=== PATIENT | female | born 1940 | race Caucasian/White ===

== ENCOUNTER 2017-01-15 10:17 | Inpatient (IN) | payer MEDICARE, BC ==
[~2017-01-15] VITALS: Ht 160 cm; Wt 101.6 kg
--- NOTE | ~2017-01-15 | OR ---
ADMIT: 01/15/2017 RM/LOC: 307 [facility] MR#: [id number] [address] [address] PENGEVELIN LUIS Cummings [address] [place] [address] Operative/Delivery Room Report SEX: F AGE: 76 : 1940 SURGERY DATE: 01/15/2017 SURGEON: Froilan Muñoz MD PREOPERATIVE DIAGNOSIS: Upper gastrointestinal blood loss. POSTOPERATIVE DIAGNOSES: 1. Moderate antral gastritis. 2. Small punctate ulceration in the duodenum with some old blood at the base of this ulcer. Likely source of her upper gastrointestinal blood loss. 3. Small sliding type hiatal hernia. PROCEDURE PERFORMED: 1. EGD with biopsies of the duodenum and antrum. 2. Injection of ulceration in the duodenum with epinephrine mixture. ANESTHESIA: Sedation. ESTIMATED BLOOD LOSS: Less than 10 mL. DESCRIPTION OF PROCEDURE: After appropriate informed consent was obtained, the patient was brought to the operating room. IV sedation was provided. A well-lubricated endoscope was introduced and passed down the esophagus. The esophageal mucosa appeared normal. GE junction appeared sharp and distinct. No evidence of any reflux changes. She did have a very small hiatal hernial about 1 cm or so in length. Sliding type hiatal hernia. The gastric mucosa and fundus appeared normal. In the gastric antrum, she did have some moderate diffuse gastritis, very superficial ulceration, nothing deep, no active bleeding there. The pylorus was intubated. Duodenal bulb appeared normal but in the second portion of the duodenum, she did have a small ulceration with a little bit of old blood directly over that. I was able to suction and wash away that old blood. I could see that the ulcer was really small, but fairly deep. So, I suspect this was the cause of her bleeding. I did elect to inject this area, so I used epinephrine mixture, injected circumferentially around the ulcer as well as directly in the center of it. It still did not have any active bleeding in it. Several biopsies were taken in the duodenum ADMIT: 01/15/2017 RM/LOC: 307 [facility] MR#: [id number] [address] [address] CHRISTINE MUSTAFADANO Cummings [address] [place] [address] Operative/Delivery Room Report SEX: F AGE: 76 : 1940 and biopsies were also taken in the antrum. The scope was retroflexed in the stomach, again revealing no proximal gastritis, no ulcerations proximally, just the small hiatal hernia. A couple of the gastric biopsy sites continued to ooze a little bit, so I did inject the rest of my epinephrine mixture in both those two biopsy sites just to control that oozing. The stomach was then deflated and the scope withdrawn without apparent complications. The patient tolerated the procedure well and was taken to the recovery room in stable condition. Froilan Muñoz MD/ regina JOB #: [id number] CC: David Marsh, Attending Physician Epifanio Hope, Family Physician FLAQUITA Bahena MD
--- NOTE | ~2017-01-15 | WND ---
ADMIT: 01/15/2017 RM/LOC: 307 [facility] MR#: [id number] [address] [address] CECILIA MUSTAFA [address] [place] [address] Wound Care Clinic SEX: F AGE: 76 : 1940 DATE OF VISIT: 01/16/2017 TIME OF VISIT: 25 minutes. HISTORY OF PRESENT ILLNESS: Cecilia is a 76-year-old female, who was admitted from [facility] in [place] for blood in stools. She presented there on January 13, 2017 with bright red blood and maroon blood that occurred very rapidly. She has had some associated abdominal and lower back pain. She is being seen today for an ulcer on the lateral surface of her right foot. She states that they have been treating this at [facility] for the past 4 months. She reports that she had an MRI done of the foot that ruled out any osteomyelitis. She described herself as being neuropathic and states that she tests 0/2 places with a monofilament test. The current treatment right now is a Mepilex Ag dressing, changed every 4th or 5th day. She reports that when she is asleep in bed, she lays on her right side. She says there has been nothing done as far as offloading while she is in bed sleeping at night. PAST MEDICAL HISTORY: 1. Obesity. 2. Obstructive sleep apnea with BiPAP each evening. 3. Coronary artery disease, history of CABG and PCI. 4. Hypertension. 5. Pulmonary hypertension. 6. Questionable history of Nwbrl-Jxawsttaf-Ibjoj. 7. History of deep vein thrombosis and PE. 8. Atrial fibrillation with chronic anticoagulation. 9. Chronic kidney disease. 10.History of nephrolithiasis, history of lithotripsy. 11.History of pelvic organ prolapse. 12.History of shingles. 13.History of cataract extraction. 14.Status post appendectomy. 15.Status post cholecystectomy. 16.Status post abdominal hernia repair. 17.Rheumatoid arthritis. 18.Chronic back pain, status post 3 back surgeries. 19.History of left reverse total shoulder. 20.Right foot chronic wound. PAST SURGICAL HISTORY: 1. History of tubal ligation and abdominal hysterectomy. 2. She has a history of left rotator cuff repair and bilateral total knee arthroplasty. 3. She has a history of lumbar degenerative disease with back surgery. 4. History of colonoscopy approximately 8 years ago and she was told this was normal. FAMILY HISTORY: Mother with [place], stroke, and hypertension. Father with COPD. ADMIT: 01/15/2017 RM/LOC: 307 [facility] MR#: [id number] [address] [address] CECILIA MUSTAFA [address] [place] [address] Wound Care Clinic SEX: F AGE: 76 : 1940 SOCIAL HISTORY: She is retired. She denies tobacco or alcohol use. She denies illicit drug use. She resides in [place], [place]. ALLERGIES: To procainamide. HOME MEDICATIONS: 1. Coumadin. 2. Tikosyn. 3. Multivitamin. 4. Fish oil. 5. Bystolic. 6. Potassium. 7. Calcium. 8. Vitamin D. 9. Aspirin. 10.Magnesium. 11.Arava. 12.Hydrocodone. 13.Lipitor. 14.Torsemide. 15.B12. 16.Morphine. REVIEW OF SYSTEMS: She denies any complaints of pain to the right foot. She denies fever or chills. She denies chest pain. She does report some shortness of breath. She denies some symptoms of claudication. She states that she does not have any pain in her legs when she sleeps at night but does report some cramping in night and that she rub some type of ointment on and that resolves it. PHYSICAL EXAMINATION: VITAL SIGNS: Temperature 97.3 degrees Fahrenheit, pulse 70, respirations 16, blood pressure 150/53, pulse ox 100% on oxygen. GENERAL ASSESSMENT: Reveals an alert and oriented x3, 76-year-old female, in no acute distress. EXTREMITIES: Assessment of her right lateral foot along the 5th metatarsal reveals a full-thickness wound that measures 1.8 cm in length x 1.5 cm in width. Wound bed is 50%, granulation tissue 50%, densely adherent yellow slough. Periwound skin is callus extending out to make the wound 2.5 cm in length x 2.5 cm in width. The periwound skin is also macerated. ADMIT: 01/15/2017 RM/LOC: 307 [facility] MR#: [id number] [address] [place] [phone] CECILIA MUSTAFA [address] [place] [address] Wound Care Clinic SEX: F AGE: 76 : 1940 Circumferential measurement of the foot is 22 cm, ankle 22 cm, and calf 35 cm. Her right foot appears to have some Charcot deformity. ASSESSMENT: Stage III pressure ulcer to right lateral foot. PLAN: I washed her foot with warm soapy water and rinsed and patted dry. I also applied saline over the wound bed. I am going to use Aquacel to the wound bed and a gauze cover dressing taped to secure change daily. I would like her to wear EdemaWear on during the day and off at night. In addition, we will see what we can do to help offload that foot while she is in bed. The patient is amenable to plan of care. If she continues, we will continue to follow her while in the hospital. Roxana Rao APRN/ regina JOB #: [id number] CC: David Marsh, Attending Physician Epifanio Hope, Family Physician
[~2017-01-15 10:17] MED LIST: ASA CHILDREN'S81 MG PO; BYSTOLIC10 MG PO; CALCIUM + VITA1 EAC1 PO; COLACE100 MG PO; COUMADIN5 MG PO; FLEXERIL DPS5 MG PO; FOLIC ACID0.4 MG PO; MULTIVITAMINS1 EAC1 PO; PERCOCET 5-3251 EACH PO; POTASSIUM CL ER PO; RESTORIL7.5 MG PO; SPIRONOLACTONE25 MG PO; SURFAK240 MG PO; TIKOSYN250 MCG PO; TYLENOL325 MG PO
--- NOTE | 2017-01-16 17:48 | HP ---
ADMIT: 01/15/2017 RM/LOC: 307 [facility] MR#: [id number] [address] [address] PENGEVELIN LUIS Cummings [address] [place] [address] History and Physical SEX: F AGE: 76 : 1940 DATE OF SERVICE: CHIEF COMPLAINT: Blood in stools. HISTORY OF PRESENT ILLNESS: The patient is a very pleasant 76-year-old female. She has a past medical history of atrial fibrillation on chronic anticoagulation, hypothyroidism as well as sleep apnea, and obesity presents to [facility] today as a transfer patient from [facility]. She presented there on 01/13 in the [place] [employer] with complaints of bright red blood and more maroon stools than anything just very abruptly. It has been associated with some abdominal, lower abdominal cramping and gas across her back. After she has a stool, that goes away. She also had an episode of hematemesis initially right away at time of her inpatient admission early that Thursday with some blood mixed in with what she had eaten the night before. Since that time, she has had about 4 large maroon bloody stools with no stool mixed in. The patient notes she has had her last large stool approximately between 9 and 10 a.m. this morning, once again, large and maroon. On presentation to [facility], her hemoglobin was 5.3, she got 4 units packed red cells that came up to 8.7. She is also anticoagulated and was given vitamin K at that point. Things had stabilized yesterday and then this morning, her hemoglobin was 7.1. The patient denies any further nausea or vomiting, has not had any current abdominal discomfort. She denies chest pain, shortness of breath, or palpitations. States overall her other medical conditions are stable. As mentioned, no recent medication changes are noted. She does note a little bit of chronic dyspnea on exertion, but nothing else has changed. PAST MEDICAL HISTORY: 1. Obesity. 2. Obstructive sleep apnea with a BiPAP each evening. 3. Coronary artery disease, history of CABG and PCI. 4. Hypertension. 5. Pulmonary hypertension. 6. Questionable history of Jzwbf-Wycvgbeux-Ifpux. 7. History of DVT and PE. 8. Atrial fibrillation with chronic anticoagulation. 9. Chronic kidney disease. 10.History of nephrolithiasis, history of lithotripsy. 11.History of pelvic organ prolapse. 12.History of shingles. 13.History of cataract extraction. 14.Status post appendectomy. 15.Status post cholecystectomy. 16.Status post abdominal hernia repair. 17.Rheumatoid arthritis. 18.Chronic back pain status post 3 back surgeries. 19.History of left reverse total shoulder. 20.Right foot chronic wound. ADMIT: 01/15/2017 RM/LOC: 307 [facility] MR#: [id number] [address] [address] LUIS MUSTAFA [address] [place] [address] History and Physical SEX: F AGE: 76 : 1940 PAST SURGICAL HISTORY: 1. History of tubal ligation and abdominal hysterectomy. 2. She has a history of left rotator cuff repair and bilateral total knee arthroplasty. 3. She also has history of lumbar degenerative disease with back surgeries. 4. She has history of colonoscopy approximately 8 years ago that she was told was normal. FAMILY HISTORY: Mother with [place], stroke, and hypertension. Father with COPD. SOCIAL HISTORY: She is retired, nonsmoker. Never a drinker. Lives in [place], [place]. ALLERGIES: PROCAINAMIDE. HOME MEDICATIONS: 1. Coumadin. 2. Tikosyn. 3. Multivitamin. 4. Fish oil. 5. Bystolic. 6. Potassium. 7. Calcium. 8. Vitamin D. 9. Aspirin. 10.Magnesium. 11.Arava. 12.Hydrocodone. 13.Lipitor. 14.Torsemide. 15.B12. 16.Morphine. REVIEW OF SYSTEMS: As noted above. All systems are reviewed and are negative. PHYSICAL EXAMINATION: VITAL SIGNS: 97.8, 82, 13, 143/58, and 100%. LABORATORY DATA: INR was 2.8 this morning. Mag was 1.9. Hemoglobin 7.1, that was down from 8.7 yesterday. White count 9.1 and 129 platelets. Sodium 139, potassium 4.2, BUN is 35 with creatinine 1.46. On her last hospitalization it looks like her creatinine been closer to 0.84. ASSESSMENT AND PLAN: 1. Gastrointestinal bleeding. Questionable source with history of melena but also history of hematemesis. 2. Acute blood loss anemia. 3. Acute kidney injury on chronic kidney disease. ADMIT: 01/15/2017 RM/LOC: [address] [place] [address] MR#: [id number] [address] [place] [id number] LUIS MUSTAFA [address] [place] [address] History and Physical SEX: F AGE: 76 : 1940 4. Atrial fibrillation. 5. Chronic anticoagulation. 6. Coronary artery disease, status post coronary artery bypass grafting. 7. Obstructive sleep apnea. 8. Right foot chronic wound. At this time, the patient is hemodynamically stable. She is finishing up her packed red cell transfusion. We are then going to give her some FFP and start her on a Protonix drip. We will have an H and H after blood is done. She had also undergone CT scanning of the abdomen and pelvis up in [place], we will try to get those images, push this way for radiologist to look at as well. I have talked with Dr. Froilan Muñoz who plans hopefully get her in for an EGD today and we will follow her closely here in the ICU. David Marsh MD/ regina JOB #: [id number] CC: David Marsh, Attending Physician Epifanio Hope, Family Physician
[2017-01-20] MEDS ORDERED: TIKOSYN125 MCG PO (17:38)
[2017-01-20] MEDS ORDERED: LIPITOR40 MG PO (17:39)
[2017-01-20] MEDS ORDERED: ARAVA DPS20 MG PO (17:39)
[2017-01-20] MEDS ORDERED: KLOR-CON M2020 ME1 PO (17:39)
[2017-01-20] MEDS ORDERED: BYSTOLIC5 MG PO (17:39)
[2017-01-20] MEDS ORDERED: DEMADEX20 MG PO (17:40)
[2017-01-20] MEDS ORDERED: ALDACTONE DPS25 MG PO (17:40)
[2017-01-20] MEDS ORDERED: MS CONTIN15 MG PO (17:41)
[2017-01-20] MEDS ORDERED: CALTRATE-600 W600 MG PO (17:41)
[2017-01-20] MEDS ORDERED: KRILL OIL500 MG PO (17:41)
[2017-01-20] MEDS ORDERED: CULTURELLE1 CAP PO (17:42)
[2017-01-20] MEDS ORDERED: MAG-OX400 MG PO (17:42)
[2017-01-20] MEDS ORDERED: VITAMIN B-121000 MCG PO (17:43)
[2017-01-20] MEDS ORDERED: NITROSTAT0.4 MG SL (17:43)
[2017-01-20] MEDS ORDERED: THERA1 EACH PO (17:43)
[2017-01-20] MEDS ORDERED: PROTONIX40 MG PO (17:43)
--- NOTE | 2017-01-21 10:45 | CO ---
ADMIT: 01/15/2017 RM/LOC: 307 [facility] MR#: [id number] [address] [address] LUIS MUSTAFA [address] [place] [address] Consultation SEX: F AGE: 76 : 1940 DATE OF CONSULTATION: 01/15/2017 ATTENDING PHYSICIAN: David Marsh CONSULTING PHYSICIAN: Froilan Muñoz MD ADDENDUM: An addendum to consultation by MARGARITO Cisneros. CHIEF COMPLAINT: Upper GI bleed. HISTORY OF PRESENT ILLNESS: This is a pleasant 76-year-old female patient of Epifanio Hope PA-C, who was sent down and accepted in transfer by Dr. David Marsh. She has had a couple of days' history of some hematemesis, melena, maroon-colored stools, and anemia. This is concerning obviously for an ongoing upper GI blood loss. PAST MEDICAL HISTORY: Well outlined in the chart. She is in atrial fibrillation, so she is on Coumadin and she is supratherapeutic on her Coumadin right now but she is receiving some FFP, platelets, and blood as I speak. PHYSICAL EXAMINATION: On exam, her abdomen is soft. It is nontender. ASSESSMENT: Probable upper gastrointestinal blood loss with hematemesis, melena, maroon-colored stools, and anemia. PLAN: I have recommended proceeding with EGD. I have gone through risks and benefits of this procedure. She understands and agrees to proceed. Froilan Muñoz MD/ regina JOB #: [id number] CC: David Marsh, Attending Physician Epifanio Hope, Family Physician
--- NOTE | 2017-01-21 10:45 | CO ---
ADMIT: 01/15/2017 RM/LOC: 307 [facility] MR#: [id number] [address] [address] [place] [address] Consultation SEX: F AGE: 76 : 1940 DATE OF CONSULTATION: 01/15/2017 ATTENDING PHYSICIAN: David Marsh CONSULTING PHYSICIAN: Froilan Muñoz MD REASON FOR CONSULTATION: Anemia, upper gastrointestinal bleed. HISTORY OF PRESENT ILLNESS: Cecilia is a very pleasant 76-year-old female, who is anticoagulated on Coumadin, who noticed some maroon-appearing stools on Thursday night. As a result of this, she became very weak and short of breath and was seen in the emergency room up in [place]. At that time, she was admitted for observation and was found to be anemic. I believe her hemoglobin dropped to somewhere in the 5 range. During her admission, she had one time emesis where she did not see it, but does described as "being bloody." She was given 4 units of blood and vitamin K unsure of the dosage. The patient has noticed her nausea has resolved, but continues to have maroon stools despite blood replacement. She has now been transferred to our facility for surgical consultation. Currently, the patient's weakness and shortness of breath has improved. She denies taking any other blood thinning medications. Denies diarrhea, constipation, or bright red blood per rectum. She does have some abdominal pain that is mainly lower in her abdomen. She believes her last EGD and colonoscopy was roughly 7 to 8 years [address] performed [address] Moreno up in [place]. At that time, she cannot remember if there were any pathological findings. PAST MEDICAL HISTORY: Significant for: 1. Acute kidney injury. 2. Atrial fibrillation. 3. Coronary artery disease. 4. Osteoarthritis. PAST SURGICAL HISTORY: 1. Previous EGD and colonoscopy about 7 to 8 years ago, please see please see HPI. 2. Back surgery for spinal stenosis. 3. Neck surgery. 4. Left shoulder surgery. 5. Hysterectomy. 6. Gallbladder and appendectomy. 7. Total knee arthroplasty. 8. Cataract surgery. 9. Right foot surgery. 10.Ventral hernia surgery. ALLERGIES: PROCAINAMIDE. MEDICATIONS: Coumadin. Last dose was Thursday night at 5 mg. ADMIT: 01/15/2017 RM/LOC: 307 [facility] MR#: [id number] [address] [address] [place] [address] Consultation SEX: F AGE: 76 : 1940 SOCIAL HISTORY: The patient denies any tobacco, alcohol, or illicit drug use. FAMILY HISTORY: The patient reports that she has a brother with peptic ulcer disease, but denies any other blood bleeding disorders or GI disorders. REVIEW OF SYSTEMS: CONSTITUTIONAL: The patient states night sweats, but this is consistent for her. She denies any fevers or chills. The rest of a comprehensive 10-point review of systems was performed and all other systems are negative. PHYSICAL EXAMINATION: GENERAL: The patient is in no acute distress. She is alert and oriented. HEENT: Head is normocephalic and atraumatic. EOMS are intact. Conjunctivae free of icterus, erythema, or pallor. Pinnae, free of deformities. Nose, midline. No tracheal deviation. NECK: Supple. SKIN: Negative for jaundice, clubbing, edema, pallor, or cyanosis. LUNGS: Normal respiratory effort. HEART: Distal pulses intact. Regular rate and rhythm. ABDOMEN: Soft, nondistended. Tenderness in right lower and left lower quadrants. NEURO: Grossly intact. LABORATORY DATA: Most recent hemoglobin is obtained from an outside lab, 7.1. ASSESSMENT: Anemia, gastrointestinal blood loss. PLAN: The plan is to have the patient undergo EGD performed by Dr. Muñoz this afternoon. I discussed the risks, alternatives, benefits, and complications of the procedure with the patient to which she has agreement of this plan, had all her questions answered, and would like to proceed. We are going to check some labs on her and Dr. Marsh is going to give her 4 units of FFP prior to endoscopy which we endorse. We will see how she does this afternoon and follow her closely while in the hospital. Thanks for the consultation of this patient. MARGARITO Cisneros / Froilan Muñoz MD / regina JOB #: [id number] CC: David Marsh, Attending Physician Epifanio Hope, Family Physician
--- NOTE | 2017-01-23 16:22 | DS ---
ADMIT: 01/15/2017 RM/LOC: 413 [facility] MR#: [id number] [address] [address] RAMSEY LUSI Zoila [address] [place] [address] Discharge Summary SEX: F AGE: 76 : 1940 ADMISSION DATE: 01/15/2017 DISCHARGE DATE: 01/19/2017 DISCHARGE DIAGNOSIS: 1. Acute upper GI (gastrointestinal) bleed/duodenal ulcer. Pathology pending. 2. Acute blood loss anemia, status post packed red blood cell transfusion. 3. Atrial fibrillation with prior anticoagulation. 4. A 3.2 x 2.8 cm right lower quadrant opacity on CT (computed tomography) scan in need of follow-up imaging. 5. Lower abdominal cramping, improved. 6. Rheumatoid arthritis, on Arava. 7. History of coronary artery disease. 8. Chronic hypoxic respiratory failure. 9. Obesity. 10.Hypertension. 11.Hyperlipidemia. CONSULTATIONS: General Surgery. PROCEDURES: EGD with biopsy. REASON FOR ADMISSION: A very pleasant 76-year-old female [place] [facility] [place] [facility] with anemia and melena/maroon stools. For complete details, please see my H and P dictated on the day of admission. HOSPITAL COURSE: At the time of admission, patient was placed in an ICU bed. Transfusion took place as well as FFP was given to correct her coagulopathy. She was hemodynamically stable. She was started on a Protonix drip and made n.p.o. General Surgery saw the patient and took her for an EGD that did show a duodenal ulcer. With her coagulopathy being resolved, her stools slowed down dramatically and only had a couple of small stools over the next 24 hours. Did have a drop in her hemoglobin to 6.9, and she was given another transfusion of packed red cells. Obviously her Coumadin was held. Biopsies from the duodenum were pending at the time of this dictation. The patient ambulated and ate. We got her back on her home medications. Of course, we held her aspirin, anti-platelet agents and her Coumadin. CT scanning that she had done in [place] did show this 3.2 x 2.8 cm right lower quadrant opacity on CT scan. Surgery reviewed this and thought it was probably some scarring. She did have some lower abdominal cramping that always got better after bowel ADMIT: 01/15/2017 RM/LOC: 413 [facility] MR#: [id number] [address] [address] LUIS MUSTAFA [facility] [place] [address] Discharge Summary SEX: F AGE: 76 : 1940 movements. Really thought this was secondary just to the cathartic properties of a GI bleed. However, if it was persistent, we decided to discuss colonoscopy as an outpatient for which the patient agreed. The patient ambulated and ate and was thought to be ready for discharge on 01/19/2017 with a very stable hemoglobin of 8.7, and no further dark stools. DISCHARGE INSTRUCTIONS: Her discharge diet is cardiac as tolerated. Her discharge medications are per her discharge medication sheet. She obviously will hold aspirin, antiplatelet agents or any Coumadin until she sees her primary care doctor. She will continue with Protonix orally twice a day. Activity will be as tolerated. Follow up with her primary care doctor and general surgeons. David Marsh MD/ yunier JOB #: [id number] CC: David Marsh MD, Attending Physician Epifanio Hope PA-C, Family Physician
== END 2017-01-19 15:50 | disposition home or self-care (01) | DRG 377 ==
LOC: 3ICU 10:17 → 4PCU 10:17 → 3ICU 13:24 → 4PCU 01-16 16:06
PROVIDERS: ADMIT Internal Medicine
PROC: 0DB68ZX Excision of Stomach, Via Natural or Artificial Opening Endoscopic, Diagnostic (ICD-10-PCS; principal; 2017-01-15)
PROC: 30233K1 Transfusion of Nonautologous Frozen Plasma into Peripheral Vein, Percutaneous Approach (ICD-10-PCS; principal; 2017-01-15)
PROC: 3E0G8GC Introduction of Other Therapeutic Substance into Upper GI, Via Natural or Artificial Opening Endoscopic (ICD-10-PCS; principal; 2017-01-15)
PROC: 0DB98ZX Excision of Duodenum, Via Natural or Artificial Opening Endoscopic, Diagnostic (ICD-10-PCS; principal; 2017-01-15)
PROC: 30233N1 Transfusion of Nonautologous Red Blood Cells into Peripheral Vein, Percutaneous Approach (ICD-10-PCS; 2017-01-18)
DX: K26.4 Chronic or unspecified duodenal ulcer with hemorrhage (principal); L89.893 Pressure ulcer of other site, stage 3; N17.9 Acute kidney failure, unspecified; J96.11 Chronic respiratory failure with hypoxia; I27.2 Other secondary pulmonary hypertension; D62 Acute posthemorrhagic anemia; K29.70 Gastritis, unspecified, without bleeding; K44.9 Diaphragmatic hernia without obstruction or gangrene; E78.5 Hyperlipidemia, unspecified; E66.9 Obesity, unspecified; Z68.38 Body mass index [BMI] 38.0-38.9, adult; R19.03 Right lower quadrant abdominal swelling, mass and lump; G47.33 Obstructive sleep apnea (adult) (pediatric); E87.6 Hypokalemia; N18.3 Chronic kidney disease, stage 3 (moderate); E03.9 Hypothyroidism, unspecified; M06.9 Rheumatoid arthritis, unspecified; I12.9 Hypertensive chronic kidney disease with stage 1 through stage 4 chronic kidney disease, or unspecified chronic kidney disease; M19.90 Unspecified osteoarthritis, unspecified site; I25.10 Atherosclerotic heart disease of native coronary artery without angina pectoris; I48.91 Unspecified atrial fibrillation; Z86.711 Personal history of pulmonary embolism; Z86.718 Personal history of other venous thrombosis and embolism; Z79.01 Long term (current) use of anticoagulants; Z95.1 Presence of aortocoronary bypass graft; Z87.442 Personal history of urinary calculi; Z96.612 Presence of left artificial shoulder joint; Z96.653 Presence of artificial knee joint, bilateral; Z82.49 Family history of ischemic heart disease and other diseases of the circulatory system; Z79.82 Long term (current) use of aspirin